=== PATIENT | female | born 1945 | race Caucasian/White ===

== ENCOUNTER 2021-10-02 04:15 | Day surgery (SDC) | payer OTHER ==
[2021-10-02 08:10] VITALS: BMI 29.0
[2021-10-02 09:36] VITALS: TEMP 98.2
[2021-10-02 12:51] VITALS: BP 159/78; PULSE 63; RESP 14
== END 2021-10-02 12:22 | disposition home or self-care (01) ==
LOC: JASU-ENDO 04:15
PROVIDERS: ATTEND Internal Medicine Gastroenterology
PROC: 0DBL8ZX Excision of Transverse Colon, Via Natural or Artificial Opening Endoscopic, Diagnostic (ICD-10-PCS; 2021-10-02)
PROC: 0DBP8ZX Excision of Rectum, Via Natural or Artificial Opening Endoscopic, Diagnostic (ICD-10-PCS; 2021-10-02)
PROC: 0DBF8ZX Excision of Right Large Intestine, Via Natural or Artificial Opening Endoscopic, Diagnostic (ICD-10-PCS; 2021-10-02)
PROC: 0DBC8ZX Excision of Ileocecal Valve, Via Natural or Artificial Opening Endoscopic, Diagnostic (ICD-10-PCS; 2021-10-02)
PROC: 0DBH8ZX Excision of Cecum, Via Natural or Artificial Opening Endoscopic, Diagnostic (ICD-10-PCS; principal; 2021-10-02 09:00)
DX: Z12.11 Encounter for screening for malignant neoplasm of colon (principal); D12.2 Benign neoplasm of ascending colon; D12.0 Benign neoplasm of cecum; D12.3 Benign neoplasm of transverse colon; K62.1 Rectal polyp; K57.30 Diverticulosis of large intestine without perforation or abscess without bleeding; D17.5 Benign lipomatous neoplasm of intra-abdominal organs
CPT/HCPCS: 88305-TC

== ENCOUNTER 2023-10-24 15:26 | Observation (INO) | payer OTHER ==
[2023-10-24 15:45] VITALS: BMI 25.8
[2023-10-24 17:27] LABS: BASO % 0.4 % (0-2.0); HEMATOCRIT 25.8 % (32.4-45.2); HEMOGLOBIN 8.6 GM/dL (10.7-15.3); LYMPH % 8.9 % (8-40); MCH 30.3 pg (25.7-33.7); MCHC 33.3 g/dl (32.0-36.0); MEAN CELL VOLUME 90.9 fl (80-96); MEAN PLT VOLUME 10.6 fl (7.5-11.1); MONO % 7.8 % (3.8-10.2); NEUT % 81.9 % (42.8-82.8); PLATELET COUNT 157 10^3/uL (134-434); RBC 2.83 M/mm3 (3.60-5.2); RDW 14.2 % (11.6-15.6); WHITE BLOOD COUNT 8.3 K/mm3 (4.0-10.0)
[2023-10-24 17:36] LABS: INR 0.94 (0.83-1.09); PROTHROMBIN TIME (PATIENT) 10.6 SEC (9.7-13.0)
[2023-10-24 17:39] LABS: ACTIVATED PTT 25.3 SECONDS (25.2-36.5)
[2023-10-24 17:45] LABS: CHLORIDE 109 mmol/L (98-107); SODIUM 139 mmol/L (136-145)
[2023-10-24 17:48] LABS: ALBUMIN 3.1 g/dl (3.4-5.0); BLOOD UREA NITROGEN 62.8 mg/dL (7-18); CO2 24 mmol/L (21-32); GLUCOSE,RANDOM 92 mg/dL (74-106); MAGNESIUM 2.5 mg/dL (1.8-2.4)
[2023-10-24 17:51] LABS: CREATININE 1.7 mg/dL (0.55-1.3); SGOT/AST 80 U/L (15-37); SGPT/ALT 43 U/L (13-61)
[2023-10-24 17:52] LABS: BILIRUBIN,TOTAL 0.3 mg/dL (0.2-1); TOT PROT 6.6 g/dl (6.4-8.2)
[2023-10-24 17:54] LABS: ALK PHOS 61 U/L (45-117)
[2023-10-24 17:56] LABS: ANION GAP 6 mmol/L (4-13)
[2023-10-24] MEDS ORDERED: CEFTRIAXONE 1 GM/50 ML BAG ONE (18:33)
[2023-10-24] MEDS: CEFTRIAXONE 1 GM in DEXTROSE 5%-WATER - 100 ML IVPB ONE (18:53)
[2023-10-24 19:17] LABS: CALCIUM 8.8 mg/dL (8.5-10.1); POTASSIUM 4.9 mmol/L (3.5-5.1)
[2023-10-24] MEDS ORDERED: VANCOMYCIN 500 MG VIAL (RESTRICTED TO ID ONLY) ONE (19:17)
[2023-10-24 19:18] LABS: ALBUMIN 3.2 g/dl (3.4-5.0); BLOOD UREA NITROGEN 60.7 mg/dL (7-18)
[2023-10-24 19:21] LABS: CREATININE 1.5 mg/dL (0.55-1.3)
[2023-10-24 19:22] LABS: BILIRUBIN,TOTAL 0.3 mg/dL (0.2-1)
[2023-10-24 19:23] LABS: TOT PROT 6.4 g/dl (6.4-8.2)
[2023-10-24] MEDS: VANCOMYCIN 500 MG in DEXTROSE 5%-WATER - 100 ML IVPB ONE (19:29)
[2023-10-24] MEDS ORDERED: PANTOPRAZOLE SODIUM 40 MG VIAL ONE (20:32)
[2023-10-24] MEDS: LACTATED RINGERS SOLUTION 1,000 ML/1,000 ML INFUS.BAG IV SCH (20:45)
[2023-10-24] MEDS: PANTOPRAZOLE SODIUM 40 MG VIAL IVPUSH SCH (22:18)
[2023-10-24] MEDS ORDERED: ROSUVASTATIN CA 20 MG TABLET ONE (22:22)
[2023-10-24] MEDS: ROSUVASTATIN CA 10 MG TABLET PO SCH (22:26)
[2023-10-25] MEDS: LEVOTHYROXINE NA 50 MCG TABLET (FP) PO SCH (06:10)
[2023-10-25] MEDS: amLODIPine BESYLATE 10 MG TABLET (FP) PO SCH (09:16)
[2023-10-25] MEDS: CEFTRIAXONE 1 GM in DEXTROSE 5%-WATER - 50 ML IVPB SCH (09:16)
[2023-10-25 10:21] LABS: HEMATOCRIT 24.9 % (32.4-45.2); HEMOGLOBIN 8.2 GM/dL (10.7-15.3); MCH 30.4 pg (25.7-33.7); MCHC 32.8 g/dl (32.0-36.0); MEAN CELL VOLUME 92.7 fl (80-96); MEAN PLT VOLUME 10.4 fl (7.5-11.1); PLATELET COUNT 129 10^3/uL (134-434); RBC 2.68 M/mm3 (3.60-5.2); RDW 13.8 % (11.6-15.6)
[2023-10-25 10:44] LABS: ALBUMIN 2.7 g/dl (3.4-5.0)
[2023-10-25 10:48] LABS: BLOOD UREA NITROGEN 40.5 mg/dL (7-18)
[2023-10-25 10:49] LABS: BILIRUBIN,TOTAL 0.2 mg/dL (0.2-1); CALCIUM 8.6 mg/dL (8.5-10.1); CREATININE 1.2 mg/dL (0.55-1.3); MAGNESIUM 2.2 mg/dL (1.8-2.4); PHOSPHOROUS 2.6 mg/dL (2.5-4.9)
[2023-10-25 10:54] LABS: TOT PROT 5.5 g/dl (6.4-8.2)
[2023-10-25] MEDS: VANCOMYCIN/WATER 1250 MG 1,250 MG/250 ML BAG IVPB SCH ×2 (16:34→18:39)
[2023-10-25] MEDS ORDERED: VANCOMYCIN/WATER 1250 MG 1,250 MG/250 ML BAG IVPB SCH (19:00)
[2023-10-26 08:13] LABS: POTASSIUM 4.4 mmol/L (3.5-5.1)
[2023-10-26 08:24] LABS: ALBUMIN 2.7 g/dl (3.4-5.0)
[2023-10-26 08:25] LABS: BASO % 0.6 % (0-2.0); BLOOD UREA NITROGEN 24.4 mg/dL (7-18); CALCIUM 8.9 mg/dL (8.5-10.1); EOS % 2.4 % (0-4.5); HEMATOCRIT 24.3 % (32.4-45.2); HEMOGLOBIN 8.1 GM/dL (10.7-15.3); LYMPH % 16.5 % (8-40); MCH 30.5 pg (25.7-33.7); MCHC 33.4 g/dl (32.0-36.0); MEAN CELL VOLUME 91.1 fl (80-96); MEAN PLT VOLUME 9.4 fl (7.5-11.1); MONO % 9.2 % (3.8-10.2); NEUT % 71.3 % (42.8-82.8); PLATELET COUNT 154 10^3/uL (134-434); RBC 2.67 M/mm3 (3.60-5.2); RDW 13.9 % (11.6-15.6); WHITE BLOOD COUNT 4.6 K/mm3 (4.0-10.0)
[2023-10-26 08:28] LABS: CREATININE 1.1 mg/dL (0.55-1.3)
[2023-10-26 08:29] LABS: BILIRUBIN,TOTAL 0.2 mg/dL (0.2-1); TOT PROT 5.6 g/dl (6.4-8.2)
[2023-10-26] MEDS: VANCOMYCIN/WATER FOR INJ (PEG) 1,000 MG/200 ML BAG IVPB SCH (18:29)
[2023-10-27 08:06] LABS: POTASSIUM 4.5 mmol/L (3.5-5.1)
[2023-10-27 08:07] LABS: CALCIUM 8.9 mg/dL (8.5-10.1)
[2023-10-27 08:09] LABS: BLOOD UREA NITROGEN 32.8 mg/dL (7-18)
[2023-10-27 08:11] LABS: CREATININE 1.2 mg/dL (0.55-1.3)
[2023-10-27 09:00] LABS: BASO % 0.4 % (0-2.0); EOS % 2.4 % (0-4.5); HEMATOCRIT 24.9 % (32.4-45.2); HEMOGLOBIN 8.2 GM/dL (10.7-15.3); LYMPH % 13.5 % (8-40); MCH 30.2 pg (25.7-33.7); MCHC 32.9 g/dl (32.0-36.0); MEAN CELL VOLUME 91.6 fl (80-96); MEAN PLT VOLUME 9.3 fl (7.5-11.1); MONO % 7.3 % (3.8-10.2); NEUT % 76.4 % (42.8-82.8); PLATELET COUNT 174 10^3/uL (134-434); RBC 2.72 M/mm3 (3.60-5.2); WHITE BLOOD COUNT 5.9 K/mm3 (4.0-10.0)
[2023-10-27] MEDS: IRON SUCROSE INJECTION 200 MG in SODIUM CHLORIDE 100 ML IVPB ONE (11:48)
[2023-10-27] MEDS ORDERED: BISACODYL 5 MG TABLET.DR (FP) PO ONE (20:00)
[2023-10-27] MEDS: POLYETHYLENE GLYCOL (HEALTHYLAX) 3350 17 GM PACKET PO SCH (21:25)
[2023-10-27] MEDS: CEFTRIAXONE 1 GM in DEXTROSE 5%-WATER - 50 ML IVPB SCH (21:25)
[2023-10-27] MEDS ORDERED: SENNOSIDES 8.8 MG/5 ML SYRUP PO SCH (22:00)
[2023-10-27 22:17] VITALS: RESP 18
[2023-10-28 07:45] LABS: HEMATOCRIT 25.1 % (32.4-45.2); HEMOGLOBIN 8.3 GM/dL (10.7-15.3); MCH 30.6 pg (25.7-33.7); MEAN CELL VOLUME 92.5 fl (80-96); MEAN PLT VOLUME 9.8 fl (7.5-11.1); PLATELET COUNT 168 10^3/uL (134-434); RBC 2.71 M/mm3 (3.60-5.2); RDW 14.2 % (11.6-15.6); WHITE BLOOD COUNT 6.1 K/mm3 (4.0-10.0)
[2023-10-28] MEDS: PEG 3350/NA SULF BICARB CL/KCL 4000 ML SOLN.RECON PO ONE (08:36)
[2023-10-28 15:01] VITALS: BP 127/65; PULSE 70; TEMP 97.9
== END 2023-10-28 15:35 | disposition home health service (06) ==
LOC: JER 15:26 → JERBED 18:04 → J7W 23:35
PROVIDERS: ADMIT Internal Medicine Gastroenterology; ATTEND Internal Medicine
PROC: 3E03329 Introduction of Other Anti-infective into Peripheral Vein, Percutaneous Approach (ICD-10-PCS; 2023-10-24)
PROC: 3E033GC Introduction of Other Therapeutic Substance into Peripheral Vein, Percutaneous Approach (ICD-10-PCS; 2023-10-24)
PROC: 3E0337Z Introduction of Electrolytic and Water Balance Substance into Peripheral Vein, Percutaneous Approach (ICD-10-PCS; 2023-10-24)
PROC: 0DJ08ZZ Inspection of Upper Intestinal Tract, Via Natural or Artificial Opening Endoscopic (ICD-10-PCS; principal; 2023-10-26 11:15)
DX: K92.2 Gastrointestinal hemorrhage, unspecified (principal); L03.113 Cellulitis of right upper limb; L02.413 Cutaneous abscess of right upper limb; K92.1 Melena; N17.9 Acute kidney failure, unspecified; I10 Essential (primary) hypertension; E78.5 Hyperlipidemia, unspecified; E03.9 Hypothyroidism, unspecified; L53.8 Other specified erythematous conditions; R01.1 Cardiac murmur, unspecified; K86.2 Cyst of pancreas
CPT/HCPCS: 36415; 73090-TC-RT-FY; 74176-TC; 76775-TC; 80048; 80053; 82272; 82550; 82553; 82728; 82962; 83540; 83550; 83605; 83735; 84100; 84466; 85025; 85027; 85045; 85610; 85730; 86850; 86900; 86901; 87040; 87070; 87081; 87186; 87205; 93005; 93010; 96361; 96365; 96366; 96367; 96368; 96375; 99285-25; G0378; J1756

== ENCOUNTER 2023-12-16 04:08 | Day surgery (SDC) | payer OTHER ==
[2023-12-16 08:45] VITALS: BMI 24.3
[2023-12-16 10:42] VITALS: TEMP 97.4
[2023-12-16 10:49] VITALS: RESP 18
[2023-12-16 11:49] VITALS: BP 141/74; PULSE 63
== END 2023-12-16 11:50 | disposition home or self-care (01) ==
LOC: JASU-ENDO 04:08
PROVIDERS: ATTEND Internal Medicine Gastroenterology
PROC: 0DB78ZX Excision of Stomach, Pylorus, Via Natural or Artificial Opening Endoscopic, Diagnostic (ICD-10-PCS; 2023-12-16)
PROC: 0DJ08ZZ Inspection of Upper Intestinal Tract, Via Natural or Artificial Opening Endoscopic (ICD-10-PCS; 2023-12-16)
PROC: 0DBC8ZX Excision of Ileocecal Valve, Via Natural or Artificial Opening Endoscopic, Diagnostic (ICD-10-PCS; principal; 2023-12-16 09:00)
PROC: 0DB68ZX Excision of Stomach, Via Natural or Artificial Opening Endoscopic, Diagnostic (ICD-10-PCS; 2023-12-16 09:00)
DX: Z12.11 Encounter for screening for malignant neoplasm of colon (principal); D12.2 Benign neoplasm of ascending colon; D12.0 Benign neoplasm of cecum; K29.50 Unspecified chronic gastritis without bleeding; K86.2 Cyst of pancreas; K57.30 Diverticulosis of large intestine without perforation or abscess without bleeding; K64.8 Other hemorrhoids
CPT/HCPCS: 88305-TC; 88342-TC